=== PATIENT | male | born 2000 | race Caucasian/White ===

== ENCOUNTER 2020-03-15 17:24 | Inpatient (IN) ==
[2020-03-15 18:07] LABS: Hematocrit 48 % (42-52); Hemoglobin 16.4 g/dL (14.0-18.0); Mean Corpuscular HGB Conc 35 g/dL (31-36); Mean Corpuscular Hemoglobin 28 pg (27-31); Mean Corpuscular Volume 82 fL (80-94); Red Blood Count 5.81 10^6 /uL (4.18-5.48); Red Cell Distribution Width 13 % (10-15); White Blood Count 10.7 10^3/uL (3.5-10.8)
[2020-03-15 18:16] LABS: ALT 28 U/L (7-52); AST 29 U/L (13-39); Albumin 5.2 g/dL (3.2-5.2); Albumin/Globulin Ratio 2.4 (1-3); Alkaline Phosphatase 65 U/L (34-104); Anion Gap 11 mmol/L (2-11); BUN/Creatinine Ratio 11.5 (8-20); Blood Urea Nitrogen 14 mg/dL (6-24); CO2 Carbon Dioxide 28 mmol/L (22-32); Calcium 10.1 mg/dL (8.6-10.3); Chloride 100 mmol/L (101-111); EGFR African American 91.6 (>60); EGFR Non-African American 75.7 (>60); Globulin 2.2 g/dL (2-4); Glucose 92 mg/dL (70-100); Potassium 3.3 mmol/L (3.5-5.0); Sodium 139 mmol/L (135-145); Total Protein 7.4 g/dL (6.4-8.9)
[2020-03-15 18:17] LABS: Urine Appearance Clear; Urine Bilirubin Negative (Negative); Urine Blood Negative (Negative); Urine Color Yellow; Urine Glucose Negative (Negative); Urine Ketones Trace (Negative); Urine Nitrite Negative (Negative); Urine Protein Negative (Negative); Urine Specific Gravity 1.012 (1.010-1.030); Urine Urobilinogen Negative (Negative)
[2020-03-15 18:32] LABS: Acetaminophen < 15 mcg/mL; Alcohol, S < 10 mg/dL (<10); Salicylate < 2.50 mg/dL (<30)
[2020-03-15 18:33] LABS: Urine Benzodiazepine Screen None Detected (None Detect); Urine Cannabinoids Screen Presumptive Positive (None Detect); Urine Opiates Screen None Detected (None Detect)
[2020-03-15 18:59] LABS: ABS Basophils 0.1 10^3/ul (0-0.2); ABS Eosinophils 0.2 10^3/ul (0-0.6); ABS Lymphocytes 2.8 10^3/ul (1.0-4.8); ABS Monocytes 0.9 10^3/ul (0-0.8); ABS Neutrophils 6.7 10^3/ul (1.5-7.7); Eosinophil % 1.7 %; Lymphocyte % 26.5 %; Nucleated Red Blood Cells % 0.1; Platelet Count Platelets clumped. 10^3/uL (150-450)
[2020-03-15] MEDS ORDERED: diPHENhydraMINE IV 50 MG/ML 1 ml VIAL (BENADRYL) IM ONE (20:22)
[2020-03-15] MEDS ORDERED: LORazepam 2 mg VIAL 1 ml IM ONE ×2 (20:22→20:25)
[2020-03-15] MEDS ORDERED: Haloperidol 5 mg/ml SDV IV/IM 5 MG/ML AMP IM ONE (20:22)
[2020-03-15] MEDS ORDERED: Lorazepam PYXIS KEY ONE (20:24)
[2020-03-15] MEDS ORDERED: Lorazepam PYXIS KEY PRN (20:25)
[2020-03-16] MEDS ORDERED: Al Hydrox/Mg Hydrox/Simet LIQ 30 ML UDC PO PRN (01:38)
[2020-03-16] MEDS: Vitamin THERAPEUTIC TAB PO SCH (15:01)
[2020-03-16] MEDS ORDERED: Albuterol HFA INHALER 8 gm MDI INH PRN (17:35)
[2020-03-16] MEDS ORDERED: Nicotine GUM 2MG FRUIT FLAVOR PO PRN (17:39)
[2020-03-17] MEDS: Vitamin THERAPEUTIC TAB PO SCH (08:53)
[2020-03-17 08:56] LABS: BUN/Creatinine Ratio 16.3 (8-20); Calcium 9.5 mg/dL (8.6-10.3); EGFR African American 110.2 (>60); HDL Cholesterol 26.2 mg/dL
[2020-03-17] MEDS: Nicotine GUM 4MG FRUIT FLAVOR PO PRN (21:03)
[2020-03-18] MEDS: Nicotine GUM 4MG FRUIT FLAVOR PO PRN ×2 (07:52→11:13)
[2020-03-18] MEDS: Vitamin THERAPEUTIC TAB PO SCH (11:14)
[2020-03-18] MEDS ORDERED: Benztropine 2 mg AMP 1 MG/ML 2 ml AMP ONE (11:47)
[2020-03-18] MEDS ORDERED: Benztropine 2 mg AMP 1 MG/ML 2 ml AMP IM ONE (11:48)
[2020-03-18] MEDS ORDERED: Benztropine 2 mg AMP 1 MG/ML 2 ml AMP IM PRN (11:50)
[2020-03-18] MEDS: Nicotine Lozenge mini 2 MG LOZNG.MINI MT PRN ×4 (14:59→22:26)
[2020-03-18] MEDS: Nicotine PATCH 21 MG/24 HR PATCH TRANSDERM SCH (19:02)
[2020-03-19] MEDS: Nicotine PATCH 21 MG/24 HR PATCH TRANSDERM SCH (08:30)
[2020-03-19] MEDS: Vitamin THERAPEUTIC TAB PO SCH (08:31)
[2020-03-19] MEDS: Nicotine Lozenge mini 2 MG LOZNG.MINI MT PRN (12:34)
[2020-03-19] MEDS: Nicotine GUM 4MG FRUIT FLAVOR PO PRN ×3 (14:14→20:35)
[2020-03-20] MEDS: Nicotine GUM 4MG FRUIT FLAVOR PO PRN ×6 (05:15→20:32)
[2020-03-20] MEDS: Nicotine PATCH 21 MG/24 HR PATCH TRANSDERM SCH (07:15)
[2020-03-20] MEDS: Vitamin THERAPEUTIC TAB PO SCH (09:24)
[2020-03-21] MEDS: Nicotine GUM 4MG FRUIT FLAVOR PO PRN ×2 (04:52→07:02)
[2020-03-21] MEDS: Nicotine PATCH 21 MG/24 HR PATCH TRANSDERM SCH (08:26)
[2020-03-21] MEDS: Vitamin THERAPEUTIC TAB PO SCH (08:26)
[2020-03-22] MEDS: Nicotine PATCH 21 MG/24 HR PATCH TRANSDERM SCH (08:27)
[2020-03-22] MEDS: Nicotine GUM 4MG FRUIT FLAVOR PO PRN ×2 (08:35→19:31)
[2020-03-23] MEDS: Nicotine PATCH 21 MG/24 HR PATCH TRANSDERM SCH (08:22)
[2020-03-23] MEDS: Nicotine GUM 4MG FRUIT FLAVOR PO PRN ×2 (10:23→12:48)
[2020-03-24] MEDS: Nicotine PATCH 21 MG/24 HR PATCH TRANSDERM SCH (09:18)
[2020-03-24] MEDS: Nicotine GUM 4MG FRUIT FLAVOR PO PRN ×3 (09:22→14:58)
[2020-03-25] MEDS: Nicotine PATCH 21 MG/24 HR PATCH TRANSDERM SCH (08:14)
[2020-03-25] MEDS: Nicotine GUM 4MG FRUIT FLAVOR PO PRN ×4 (10:56→19:36)
[2020-03-25] MEDS ORDERED: Lithium Carbonate ER 450mg TAB PO SCH (21:00)
[2020-03-26] MEDS: Nicotine PATCH 21 MG/24 HR PATCH TRANSDERM SCH (08:13)
[2020-03-26] MEDS: Nicotine GUM 4MG FRUIT FLAVOR PO PRN (08:16)
[2020-03-26 09:18] VITALS: BP 150/85
== END 2020-03-26 09:23 | disposition home or self-care (01) | DRG 753 ==
LOC: ED 17:24 → BSU 23:58
PROVIDERS: ADMIT Psychiatry & Neurology Addiction Psychiatry; ATTEND Psychiatry & Neurology Psychiatry

== ENCOUNTER 2021-01-14 09:48 | Inpatient (IN) ==
[2021-01-14] MEDS ORDERED: Albuterol HFA INHALER 8 gm MDI INH ONE (11:05)
[2021-01-14 12:16] LABS: ABS Eosinophils 0.1 10^3/ul (0-0.6); ABS Monocytes 0.7 10^3/ul (0-0.8); ABS Neutrophils 4.5 10^3/ul (1.5-7.7); Hematocrit 44 % (42-52); Hemoglobin 14.9 g/dL (14.0-18.0); Lymphocyte % 26.3 %; Mean Corpuscular HGB Conc 34 g/dL (31-36); Mean Corpuscular Hemoglobin 28 pg (27-31); Mean Corpuscular Volume 83 fL (80-94); Mean Platelet Volume 10.6 fL (7.4-10.4); Nucleated Red Blood Cells % 0.1; Platelet Count 145 10^3/uL (150-450); Red Blood Count 5.29 10^6 /uL (4.18-5.48); Red Cell Distribution Width 13 % (10-15); White Blood Count 7.4 10^3/uL (3.5-10.8)
[2021-01-14 12:31] LABS: ALT 17 U/L (7-52); AST 30 U/L (13-39); Albumin 4.2 g/dL (3.2-5.2); Albumin/Globulin Ratio 1.6 (1-3); Alkaline Phosphatase 75 U/L (35-149); Anion Gap 6 mmol/L (2-11); Blood Urea Nitrogen 10 mg/dL (6-24); CO2 Carbon Dioxide 26 mmol/L (22-32); Chloride 106 mmol/L (101-111); EGFR African American 143.5 (>60); EGFR Non-African American 118.6 (>60); Globulin 2.6 g/dL (2-4); Glucose 94 mg/dL (70-100); Potassium 3.8 mmol/L (3.5-5.0); Sodium 138 mmol/L (135-145); Total Protein 6.8 g/dL (6.4-8.9)
[2021-01-14 12:34] LABS: Lithium < 0.10 mmol/L (0.6-1.2)
[2021-01-14] MEDS ORDERED: Al Hydrox/Mg Hydrox/Simet LIQ 30 ML UDC PO PRN (13:00)
[2021-01-14] MEDS ORDERED: Nicotine PATCH 21 MG/24 HR PATCH TRANSDERM ONE (13:06)
[2021-01-14] MEDS ORDERED: Nicotine GUM 4MG FRUIT FLAVOR PO ONE (13:10)
[2021-01-14] MEDS ORDERED: LORazepam 2 mg VIAL 1 ml ONE (13:27)
[2021-01-14] MEDS ORDERED: Haloperidol 5 mg/ml SDV IV/IM 5 MG/ML AMP ONE (13:45)
[2021-01-14] MEDS ORDERED: diPHENhydraMINE IV 50 MG/ML 1 ml VIAL (BENADRYL) ONE (13:45)
[2021-01-14 13:57] LABS: HIV 4th Generation Nonreactive (Nonreactive)
[2021-01-14 13:58] LABS: Urine Benzodiazepine Screen None Detected (None Detect); Urine Cannabinoids Screen Presumptive Positive (None Detect); Urine Opiates Screen None Detected (None Detect)
[2021-01-14] MEDS: Nicotine GUM 2MG FRUIT FLAVOR PO PRN ×2 (20:36→22:45)
[2021-01-15] MEDS: Albuterol HFA INHALER 8 gm MDI INH PRN ×2 (08:43→22:50)
[2021-01-15] MEDS: Lithium Carbonate ER 450mg TAB PO SCH (08:46)
[2021-01-15] MEDS: Nicotine GUM 2MG FRUIT FLAVOR PO PRN ×2 (08:48→10:52)
[2021-01-15] MEDS: Nicotine PATCH 21 MG/24 HR PATCH TRANSDERM SCH (11:19)
[2021-01-15] MEDS: Lidocaine PATCH 5% PATCH TRANSDERM SCH (11:20)
[2021-01-15] MEDS: Nicotine GUM 4MG FRUIT FLAVOR PO PRN ×4 (11:23→22:52)
[2021-01-15] MEDS ORDERED: risperiDONE-M 1 mg Oradis TAB PO ONE (13:29)
[2021-01-15] MEDS: Lidocaine Patch REMOVE PATCH PATCH OFF SCH (20:24)
[2021-01-16] MEDS: Albuterol HFA INHALER 8 gm MDI INH PRN ×2 (07:40→20:36)
[2021-01-16] MEDS: Nicotine PATCH 21 MG/24 HR PATCH TRANSDERM SCH (07:42)
[2021-01-16] MEDS: Nicotine GUM 4MG FRUIT FLAVOR PO PRN ×5 (07:44→20:40)
[2021-01-16] MEDS: Lithium Carbonate ER 450mg TAB PO SCH (07:44)
[2021-01-16] MEDS: Lidocaine PATCH 5% PATCH TRANSDERM SCH (07:45)
[2021-01-16] MEDS ORDERED: Albuterol HFA INHALER 8 gm MDI INH ONE (08:59)
[2021-01-16] MEDS ORDERED: Ondansetron ODT 4 mg TAB 4 MG TAB PO PRN (11:43)
[2021-01-16] MEDS ORDERED: Albuterol 2.5mg/3 ml (0.083%) NEB.SOLN INH PRN (11:51)
[2021-01-16] MEDS: OLANzapine 5 mg TAB*ODT PO PRN (15:11)
[2021-01-16] MEDS: Lidocaine Patch REMOVE PATCH PATCH OFF SCH (20:39)
[2021-01-17] MEDS: Albuterol HFA INHALER 8 gm MDI INH PRN ×2 (07:41→16:54)
[2021-01-17] MEDS: Lidocaine PATCH 5% PATCH TRANSDERM SCH (08:25)
[2021-01-17] MEDS: Nicotine PATCH 21 MG/24 HR PATCH TRANSDERM SCH (08:25)
[2021-01-17] MEDS: Nicotine GUM 4MG FRUIT FLAVOR PO PRN ×6 (08:30→21:10)
[2021-01-17] MEDS: Lidocaine Patch REMOVE PATCH PATCH OFF SCH (22:41)
[2021-01-18] MEDS: Lidocaine PATCH 5% PATCH TRANSDERM SCH (08:39)
[2021-01-18] MEDS: Albuterol HFA INHALER 8 gm MDI INH PRN (08:39)
[2021-01-18] MEDS: Nicotine GUM 4MG FRUIT FLAVOR PO PRN ×5 (08:42→19:51)
[2021-01-18] MEDS: Nicotine PATCH 21 MG/24 HR PATCH TRANSDERM SCH (08:42)
[2021-01-18] MEDS: Lidocaine Patch REMOVE PATCH PATCH OFF SCH (19:53)
[2021-01-19] MEDS: Albuterol HFA INHALER 8 gm MDI INH PRN ×3 (00:07→21:34)
[2021-01-19] MEDS: Nicotine GUM 4MG FRUIT FLAVOR PO PRN ×6 (00:11→21:38)
[2021-01-19] MEDS: OLANzapine 5 mg TAB*ODT PO PRN (00:51)
[2021-01-19] MEDS: Lidocaine PATCH 5% PATCH TRANSDERM SCH ×2 (08:07→13:36)
[2021-01-19] MEDS: Nicotine PATCH 21 MG/24 HR PATCH TRANSDERM SCH (08:31)
[2021-01-19] MEDS: Nicotine Lozenge mini 4 MG LOZNG.MINI MT PRN ×4 (14:41→23:01)
[2021-01-19] MEDS: Lidocaine Patch REMOVE PATCH PATCH OFF SCH (20:09)
[2021-01-20] MEDS: Nicotine PATCH 21 MG/24 HR PATCH TRANSDERM SCH (07:34)
[2021-01-20] MEDS: Lidocaine PATCH 5% PATCH TRANSDERM SCH (08:06)
[2021-01-20] MEDS: Nicotine GUM 4MG FRUIT FLAVOR PO PRN ×2 (08:08→10:18)
[2021-01-20 08:50] VITALS: BP 149/86
[2021-01-20] MEDS: Albuterol HFA INHALER 8 gm MDI INH PRN (09:06)
== END 2021-01-20 12:30 | disposition home or self-care (01) | DRG 753 ==
LOC: ED 09:48 → BSU 16:25
PROVIDERS: ADMIT Psychiatry & Neurology Psychiatry; ATTEND Psychiatry & Neurology Psychiatry

== ENCOUNTER 2021-01-26 13:05 | Inpatient (IN) ==
[2021-01-26] MEDS ORDERED: LORazepam 2 mg VIAL 1 ml ONE (13:23)
[2021-01-26] MEDS ORDERED: Haloperidol 5 mg/ml SDV IV/IM 5 MG/ML AMP ONE (13:25)
[2021-01-26] MEDS ORDERED: diPHENhydraMINE IV 50 MG/ML 1 ml VIAL (BENADRYL) ONE (13:25)
[2021-01-26 15:40] LABS: ABS Basophils 0.1 10^3/ul (0-0.2); ABS Eosinophils 0.1 10^3/ul (0-0.6); ABS Lymphocytes 2.1 10^3/ul (1.0-4.8); ABS Monocytes 0.8 10^3/ul (0-0.8); Eosinophil % 0.8 %; Hematocrit 46 % (42-52); Hemoglobin 15.2 g/dL (14.0-18.0); Lymphocyte % 21.2 %; Mean Corpuscular HGB Conc 33 g/dL (31-36); Mean Corpuscular Hemoglobin 28 pg (27-31); Mean Corpuscular Volume 84 fL (80-94); Mean Platelet Volume 10.1 fL (7.4-10.4); Platelet Count 213 10^3/uL (150-450); Red Cell Distribution Width 13 % (10-15); White Blood Count 10.1 10^3/uL (3.5-10.8)
[2021-01-26 16:06] LABS: ALT 26 U/L (7-52); AST 36 U/L (13-39); Albumin 4.6 g/dL (3.2-5.2); Albumin/Globulin Ratio 1.8 (1-3); Alkaline Phosphatase 79 U/L (35-149); Anion Gap 9 mmol/L (2-11); Blood Urea Nitrogen 15 mg/dL (6-24); CO2 Carbon Dioxide 27 mmol/L (22-32); Calcium 9.4 mg/dL (8.6-10.3); Chloride 104 mmol/L (101-111); EGFR African American 124.1 (>60); EGFR Non-African American 102.6 (>60); Globulin 2.5 g/dL (2-4); Glucose 80 mg/dL (70-100); Potassium 3.2 mmol/L (3.5-5.0); Sodium 140 mmol/L (135-145); Total Protein 7.1 g/dL (6.4-8.9)
[2021-01-26 16:33] LABS: Alcohol, S < 10 mg/dL (<10); Salicylate < 2.50 mg/dL (<30)
[2021-01-26 16:37] LABS: Acetaminophen < 15 mcg/mL
[2021-01-26 16:38] LABS: TSH Ultra Thyroid Stim Horm 1.35 mcIU/mL (0.34-5.60)
[2021-01-26] MEDS ORDERED: Al Hydrox/Mg Hydrox/Simet LIQ 30 ML UDC PO PRN (18:45)
[2021-01-26] MEDS ORDERED: Albuterol 2.5mg/3 ml (0.083%) NEB.SOLN INH PRN (18:50)
[2021-01-26] MEDS ORDERED: Nicotine GUM 2MG FRUIT FLAVOR PO PRN (19:00)
[2021-01-26 21:22] LABS: Lithium < 0.10 mmol/L (0.6-1.2)
[2021-01-27] MEDS: Lithium Carbonate ER 450mg TAB PO SCH (08:29)
[2021-01-27] MEDS: Vitamin THERAPEUTIC TAB PO SCH (08:29)
[2021-01-27] MEDS ORDERED: Nicotine GUM 4MG FRUIT FLAVOR PO ONE (10:40)
[2021-01-27] MEDS: Nicotine GUM 4MG FRUIT FLAVOR PO PRN ×4 (10:45→21:47)
[2021-01-27] MEDS: Nicotine PATCH 21 MG/24 HR PATCH TRANSDERM SCH ×2 (10:59→12:35)
[2021-01-27 11:03] LABS: Urine Appearance Cloudy; Urine Bilirubin Negative (Negative); Urine Blood Negative (Negative); Urine Color Yellow; Urine Glucose Negative (Negative); Urine Ketones 1+ (Negative); Urine Nitrite Negative (Negative); Urine Protein Negative (Negative); Urine Specific Gravity 1.027 (1.002-1.030); Urine Urobilinogen Negative (Negative)
[2021-01-27 11:21] LABS: Urine Bacteria Absent (Absent); Urine Red Blood Cell Trace(0-2/hpf) (Absent); Urine White Blood Cell 1+(6-10/hpf) (Absent)
[2021-01-27 12:06] LABS: Urine Benzodiazepine Screen None Detected (None Detect); Urine Cannabinoids Screen Presumptive Positive (None Detect); Urine Opiates Screen None Detected (None Detect)
[2021-01-27] MEDS: Nicotine Lozenge mini 4 MG LOZNG.MINI MT PRN ×3 (12:29→23:33)
[2021-01-27] MEDS ORDERED: Potassium Chlor 10 meq TAB PO ONE (13:18)
[2021-01-27] MEDS: Albuterol HFA INHALER 8 gm MDI INH PRN ×2 (13:53→21:11)
[2021-01-28] MEDS: Nicotine GUM 4MG FRUIT FLAVOR PO PRN ×6 (06:06→22:04)
[2021-01-28] MEDS: Albuterol HFA INHALER 8 gm MDI INH PRN ×5 (07:45→22:02)
[2021-01-28] MEDS: Lithium Carbonate ER 450mg TAB PO SCH (07:50)
[2021-01-28] MEDS: Nicotine PATCH 21 MG/24 HR PATCH TRANSDERM SCH (07:50)
[2021-01-28] MEDS: Vitamin THERAPEUTIC TAB PO SCH (07:50)
[2021-01-28] MEDS: Nicotine Lozenge mini 4 MG LOZNG.MINI MT PRN ×4 (07:53→21:32)
[2021-01-28 08:11] LABS: HDL Cholesterol 35.9 mg/dL
[2021-01-28 12:42] LABS: Calcium 9.2 mg/dL (8.6-10.3); Direct Bilirubin 0.1 mg/dL (0.03-0.18); EGFR African American 143.5 (>60); EGFR Non-African American 118.6 (>60); Indirect Bilirubin 0.4 mg/dL (0.3-1.0); Potassium 3.8 mmol/L (3.5-5.0); Total Bilirubin 0.5 mg/dL (0.2-1.0)
[2021-01-29] MEDS: Albuterol HFA INHALER 8 gm MDI INH PRN ×4 (03:19→17:33)
[2021-01-29] MEDS: Nicotine GUM 4MG FRUIT FLAVOR PO PRN ×7 (03:21→23:10)
[2021-01-29] MEDS: Nicotine Lozenge mini 4 MG LOZNG.MINI MT PRN ×4 (04:06→22:18)
[2021-01-29] MEDS: Lithium Carbonate ER 450mg TAB PO SCH (08:12)
[2021-01-29] MEDS: Vitamin THERAPEUTIC TAB PO SCH (08:12)
[2021-01-29] MEDS: Nicotine PATCH 21 MG/24 HR PATCH TRANSDERM SCH (08:13)
[2021-01-29] MEDS: OLANzapine 5 mg TAB*ODT PO SCH (11:04)
[2021-01-30] MEDS: Albuterol HFA INHALER 8 gm MDI INH PRN (01:52)
[2021-01-30] MEDS: Nicotine GUM 4MG FRUIT FLAVOR PO PRN ×4 (06:36→21:37)
[2021-01-30] MEDS: OLANzapine 5 mg TAB*ODT PO SCH (08:27)
[2021-01-30] MEDS: Lithium Carbonate ER 450mg TAB PO SCH ×2 (08:27→21:27)
[2021-01-30] MEDS: Vitamin THERAPEUTIC TAB PO SCH (08:28)
[2021-01-30] MEDS: Nicotine PATCH 21 MG/24 HR PATCH TRANSDERM SCH (08:28)
[2021-01-30] MEDS: Nicotine Lozenge mini 4 MG LOZNG.MINI MT PRN (21:37)
[2021-01-31] MEDS: Nicotine GUM 4MG FRUIT FLAVOR PO PRN ×9 (00:30→22:20)
[2021-01-31] MEDS: Nicotine Lozenge mini 4 MG LOZNG.MINI MT PRN ×3 (05:14→09:50)
[2021-01-31] MEDS: Albuterol HFA INHALER 8 gm MDI INH PRN ×2 (05:49→22:20)
[2021-01-31] MEDS: Vitamin THERAPEUTIC TAB PO SCH (08:24)
[2021-01-31] MEDS: Nicotine PATCH 21 MG/24 HR PATCH TRANSDERM SCH (08:25)
[2021-01-31] MEDS: Lithium Carbonate ER 450mg TAB PO SCH ×2 (08:25→20:39)
[2021-01-31] MEDS: OLANzapine 5 mg TAB*ODT PO SCH (08:26)
[2021-02-01] MEDS: Nicotine GUM 4MG FRUIT FLAVOR PO PRN ×7 (00:50→22:51)
[2021-02-01] MEDS: Nicotine Lozenge mini 4 MG LOZNG.MINI MT PRN ×3 (03:29→19:07)
[2021-02-01] MEDS: Vitamin THERAPEUTIC TAB PO SCH (08:20)
[2021-02-01] MEDS: OLANzapine 5 mg TAB*ODT PO SCH (08:20)
[2021-02-01] MEDS: Nicotine PATCH 21 MG/24 HR PATCH TRANSDERM SCH ×2 (09:44→12:37)
[2021-02-01] MEDS: Lithium Carbonate ER 450mg TAB PO SCH ×2 (09:45→20:46)
[2021-02-01] MEDS: Albuterol HFA INHALER 8 gm MDI INH PRN ×2 (09:46→15:01)
[2021-02-02] MEDS: OLANzapine 5 mg TAB*ODT PO SCH (07:34)
[2021-02-02] MEDS: Lithium Carbonate ER 450mg TAB PO SCH ×2 (07:34→20:48)
[2021-02-02] MEDS: Vitamin THERAPEUTIC TAB PO SCH (07:35)
[2021-02-02] MEDS: Nicotine GUM 4MG FRUIT FLAVOR PO PRN ×5 (07:35→22:09)
[2021-02-02] MEDS: Nicotine Lozenge mini 4 MG LOZNG.MINI MT PRN ×3 (08:51→22:09)
[2021-02-02] MEDS: Albuterol HFA INHALER 8 gm MDI INH PRN ×3 (10:28→19:51)
[2021-02-02] MEDS: Nicotine PATCH 21 MG/24 HR PATCH TRANSDERM SCH (13:53)
[2021-02-03] MEDS: Nicotine GUM 4MG FRUIT FLAVOR PO PRN ×5 (05:47→20:43)
[2021-02-03] MEDS: Lithium Carbonate ER 450mg TAB PO SCH ×2 (08:10→20:39)
[2021-02-03] MEDS: OLANzapine 5 mg TAB*ODT PO SCH (08:10)
[2021-02-03] MEDS: Vitamin THERAPEUTIC TAB PO SCH (08:10)
[2021-02-03] MEDS: Nicotine PATCH 21 MG/24 HR PATCH TRANSDERM SCH (08:42)
[2021-02-03] MEDS: Nicotine Lozenge mini 4 MG LOZNG.MINI MT PRN ×3 (08:42→22:21)
[2021-02-03] MEDS: Albuterol HFA INHALER 8 gm MDI INH PRN ×2 (10:27→15:40)
[2021-02-04] MEDS: Nicotine GUM 4MG FRUIT FLAVOR PO PRN ×6 (06:11→22:53)
[2021-02-04] MEDS: Albuterol HFA INHALER 8 gm MDI INH PRN (06:11)
[2021-02-04] MEDS: Nicotine Lozenge mini 4 MG LOZNG.MINI MT PRN ×4 (07:35→17:54)
[2021-02-04] MEDS: Nicotine PATCH 21 MG/24 HR PATCH TRANSDERM SCH ×2 (09:45→10:28)
[2021-02-04] MEDS: Vitamin THERAPEUTIC TAB PO SCH (09:45)
[2021-02-04] MEDS: OLANzapine 5 mg TAB*ODT PO SCH (09:45)
[2021-02-04] MEDS: Lithium Carbonate ER 450mg TAB PO SCH ×3 (09:45→19:08)
[2021-02-05] MEDS: OLANzapine 5 mg TAB*ODT PO SCH (08:01)
[2021-02-05] MEDS: Nicotine PATCH 21 MG/24 HR PATCH TRANSDERM SCH (08:01)
[2021-02-05] MEDS: Nicotine GUM 4MG FRUIT FLAVOR PO PRN ×5 (08:01→21:51)
[2021-02-05 08:45] LABS: Lithium 0.67 mmol/L (0.6-1.2)
[2021-02-05] MEDS: Vitamin THERAPEUTIC TAB PO SCH (08:51)
[2021-02-05] MEDS: Lithium Carbonate ER 450mg TAB PO SCH ×2 (09:00→19:47)
[2021-02-05] MEDS: Nicotine Lozenge mini 4 MG LOZNG.MINI MT PRN ×2 (11:10→19:48)
[2021-02-05 12:37] LABS: Calcium 9.8 mg/dL (8.6-10.3); Magnesium 1.9 mg/dL (1.9-2.7)
[2021-02-06] MEDS: Lithium Carbonate ER 450mg TAB PO SCH ×2 (08:25→20:17)
[2021-02-06] MEDS: Vitamin THERAPEUTIC TAB PO SCH (08:26)
[2021-02-06] MEDS: OLANzapine 5 mg TAB*ODT PO SCH (08:27)
[2021-02-06] MEDS: Nicotine PATCH 21 MG/24 HR PATCH TRANSDERM SCH (08:31)
[2021-02-06] MEDS: Nicotine Lozenge mini 4 MG LOZNG.MINI MT PRN ×2 (08:32→21:46)
[2021-02-06] MEDS: Nicotine GUM 4MG FRUIT FLAVOR PO PRN ×3 (11:24→20:17)
[2021-02-07] MEDS: Lithium Carbonate ER 450mg TAB PO SCH ×2 (08:36→20:27)
[2021-02-07] MEDS: OLANzapine 5 mg TAB*ODT PO SCH (08:36)
[2021-02-07] MEDS: Nicotine PATCH 21 MG/24 HR PATCH TRANSDERM SCH (08:37)
[2021-02-07] MEDS: Vitamin THERAPEUTIC TAB PO SCH (08:37)
[2021-02-07] MEDS: Nicotine GUM 4MG FRUIT FLAVOR PO PRN ×4 (13:02→20:29)
[2021-02-07] MEDS: Nicotine Lozenge mini 4 MG LOZNG.MINI MT PRN ×2 (18:43→22:07)
[2021-02-08] MEDS: OLANzapine 5 mg TAB*ODT PO SCH (08:01)
[2021-02-08] MEDS: Vitamin THERAPEUTIC TAB PO SCH (08:01)
[2021-02-08] MEDS: Lithium Carbonate ER 450mg TAB PO SCH ×2 (08:02→20:24)
[2021-02-08] MEDS: Nicotine PATCH 21 MG/24 HR PATCH TRANSDERM SCH (08:05)
[2021-02-08] MEDS: Nicotine GUM 4MG FRUIT FLAVOR PO PRN ×3 (10:52→22:12)
[2021-02-08] MEDS: Nicotine Lozenge mini 4 MG LOZNG.MINI MT PRN (15:31)
[2021-02-09] MEDS: Vitamin THERAPEUTIC TAB PO SCH (08:56)
[2021-02-09] MEDS: OLANzapine 5 mg TAB*ODT PO SCH (08:57)
[2021-02-09] MEDS: Lithium Carbonate ER 450mg TAB PO SCH ×2 (08:57→20:20)
[2021-02-09] MEDS: Nicotine GUM 4MG FRUIT FLAVOR PO PRN ×4 (08:58→20:22)
[2021-02-09] MEDS: Nicotine PATCH 21 MG/24 HR PATCH TRANSDERM SCH (08:58)
[2021-02-09] MEDS: Nicotine Lozenge mini 4 MG LOZNG.MINI MT PRN (22:03)
[2021-02-10] MEDS: Nicotine Lozenge mini 4 MG LOZNG.MINI MT PRN ×4 (07:01→21:41)
[2021-02-10] MEDS: Nicotine PATCH 21 MG/24 HR PATCH TRANSDERM SCH (07:02)
[2021-02-10 08:45] LABS: Calcium 9.8 mg/dL (8.6-10.3); EGFR African American 130.6 (>60); EGFR Non-African American 107.9 (>60)
[2021-02-10] MEDS: Vitamin THERAPEUTIC TAB PO SCH ×2 (09:02→09:05)
[2021-02-10] MEDS: Lithium Carbonate ER 450mg TAB PO SCH ×2 (09:04→20:25)
[2021-02-10] MEDS: Nicotine GUM 4MG FRUIT FLAVOR PO PRN ×4 (09:05→22:49)
[2021-02-10] MEDS: OLANzapine 5 mg TAB*ODT PO SCH (09:05)
[2021-02-10 09:09] LABS: Lithium 0.96 mmol/L (0.6-1.2)
[2021-02-10 09:24] LABS: TSH Ultra Thyroid Stim Horm 5.5 mcIU/mL (0.34-5.60)
[2021-02-10 10:48] LABS: Free T4 0.9 ng/dL (0.61-1.12)
[2021-02-11] MEDS: Nicotine GUM 4MG FRUIT FLAVOR PO PRN ×3 (07:23→21:10)
[2021-02-11] MEDS: Lithium Carbonate ER 450mg TAB PO SCH ×2 (08:44→21:03)
[2021-02-11] MEDS: Vitamin THERAPEUTIC TAB PO SCH (08:45)
[2021-02-11] MEDS: OLANzapine 5 mg TAB*ODT PO SCH ×2 (08:45→21:05)
[2021-02-11] MEDS: Nicotine PATCH 21 MG/24 HR PATCH TRANSDERM SCH (08:47)
[2021-02-11] MEDS: Nicotine Lozenge mini 4 MG LOZNG.MINI MT PRN ×4 (08:49→22:45)
[2021-02-12] MEDS: Nicotine Lozenge mini 4 MG LOZNG.MINI MT PRN ×5 (03:25→21:42)
[2021-02-12] MEDS: Lithium Carbonate ER 450mg TAB PO SCH ×2 (08:46→20:05)
[2021-02-12] MEDS: OLANzapine 5 mg TAB*ODT PO SCH ×2 (08:46→20:06)
[2021-02-12] MEDS: Vitamin THERAPEUTIC TAB PO SCH (08:47)
[2021-02-12] MEDS: Nicotine PATCH 21 MG/24 HR PATCH TRANSDERM SCH (08:47)
[2021-02-12] MEDS: Nicotine GUM 4MG FRUIT FLAVOR PO PRN ×2 (10:04→22:09)
[2021-02-13] MEDS: Vitamin THERAPEUTIC TAB PO SCH (09:02)
[2021-02-13] MEDS: Lithium Carbonate ER 450mg TAB PO SCH ×2 (09:02→21:27)
[2021-02-13] MEDS: OLANzapine 5 mg TAB*ODT PO SCH ×2 (09:02→21:27)
[2021-02-13] MEDS: Nicotine PATCH 21 MG/24 HR PATCH TRANSDERM SCH (09:03)
[2021-02-13] MEDS: Nicotine Lozenge mini 4 MG LOZNG.MINI MT PRN ×3 (09:08→22:36)
[2021-02-13] MEDS: Nicotine GUM 4MG FRUIT FLAVOR PO PRN ×2 (11:18→16:12)
[2021-02-14] MEDS: Nicotine PATCH 21 MG/24 HR PATCH TRANSDERM SCH (07:44)
[2021-02-14] MEDS: Vitamin THERAPEUTIC TAB PO SCH (07:46)
[2021-02-14] MEDS: OLANzapine 5 mg TAB*ODT PO SCH ×2 (07:46→20:17)
[2021-02-14] MEDS: Lithium Carbonate ER 450mg TAB PO SCH ×2 (07:46→20:16)
[2021-02-14] MEDS: Nicotine GUM 4MG FRUIT FLAVOR PO PRN ×4 (09:12→22:51)
[2021-02-14] MEDS: Nicotine Lozenge mini 4 MG LOZNG.MINI MT PRN ×7 (10:49→21:52)
[2021-02-15] MEDS: Nicotine PATCH 21 MG/24 HR PATCH TRANSDERM SCH (07:44)
[2021-02-15] MEDS: Lithium Carbonate ER 450mg TAB PO SCH ×2 (07:46→20:18)
[2021-02-15] MEDS: Nicotine Lozenge mini 4 MG LOZNG.MINI MT PRN ×6 (07:46→23:06)
[2021-02-15] MEDS: Vitamin THERAPEUTIC TAB PO SCH (07:46)
[2021-02-15] MEDS: OLANzapine 5 mg TAB*ODT PO SCH ×2 (07:47→20:18)
[2021-02-15] MEDS: Nicotine GUM 4MG FRUIT FLAVOR PO PRN ×2 (14:00→21:33)
[2021-02-16 08:29] VITALS: BP 147/88
[2021-02-16] MEDS: Lithium Carbonate ER 450mg TAB PO SCH (08:36)
[2021-02-16] MEDS: Vitamin THERAPEUTIC TAB PO SCH (08:36)
[2021-02-16] MEDS: OLANzapine 5 mg TAB*ODT PO SCH (08:37)
[2021-02-16] MEDS: Nicotine PATCH 21 MG/24 HR PATCH TRANSDERM SCH (08:38)
[2021-02-16] MEDS: Nicotine Lozenge mini 4 MG LOZNG.MINI MT PRN ×2 (08:40→11:01)
== END 2021-02-16 15:50 | disposition home or self-care (01) | DRG 753 ==
LOC: ED 13:05 → BSU 18:21
PROVIDERS: ADMIT Psychiatry & Neurology Psychiatry; ATTEND Psychiatry & Neurology Psychiatry

== ENCOUNTER 2022-12-26 10:41 | Inpatient (IN) ==
[2022-12-26 12:47] LABS: ABS Basophils 0.1 10^3/uL (0.0-0.1); ABS Eosinophils 0.1 10^3/uL (0.0-0.5); ABS Lymphocytes 2.1 10^3/uL (1.0-4.8); ABS Monocytes 0.9 10^3/uL (0.0-1.1); ABS Neutrophils 6.3 10^3/uL (1.5-7.6); Eosinophil % 0.6 %; Hematocrit 43.5 % (38-53); Hemoglobin 14.8 g/dL (13.2-16.3); Lymphocyte % 22.6 %; Mean Corpuscular Hemoglobin 28.2 pg (27-33); Mean Corpuscular Hgb Conc 33.9 g/dL (31-36); Mean Corpuscular Volume 83.3 fL (80-97); Mean Platelet Volume 9.7 fL (7.5-11.2); Nucleated Red Blood Cells % 0.1 /100 WBC (0.0-0.4); Platelet Count 164 10^3/uL (150-450); Red Blood Count 5.23 10^6/uL (4.06-5.63); Red Cell Distribution Width 13.5 % (12-17); White Blood Count 9.4 10^3/uL (3.6-10.2)
[2022-12-26 13:26] LABS: Urine Appearance Clear; Urine Bilirubin Negative (Negative); Urine Blood Negative (Negative); Urine Color Yellow; Urine Glucose Negative (Negative); Urine Ketones 1+ (Negative); Urine Nitrite Negative (Negative); Urine Protein Negative (Negative); Urine Specific Gravity 1.017 (1.002-1.030); Urine Urobilinogen Negative (Negative)
[2022-12-26 13:30] LABS: ALT 15 U/L (7-52); AST 21 U/L (13-39); Albumin 4.9 g/dL (3.2-5.2); Albumin/Globulin Ratio 2.9 (1-3); Alcohol, S < 13 mg/dL (<13); Alkaline Phosphatase 55 U/L (35-149); Anion Gap 10 mmol/L (2-16); Blood Urea Nitrogen 12 mg/dL (6-24); CO2 Carbon Dioxide 24 mmol/L (22-32); Calcium 9.5 mg/dL (8.6-10.3); Chloride 104 mmol/L (101-111); Creatinine, Serum 0.78 mg/dL (0.67-1.17); Globulin 1.7 g/dL (2-4); Glucose 83 mg/dL (70-100); Lithium < 0.10 mmol/L (0.6-1.2); Potassium 3.9 mmol/L (3.5-5.0); Salicylate < 2.50 mg/dL (<30); Sodium 138 mmol/L (135-145); Total Protein 6.6 g/dL (6.4-8.9); eGFR CKD-EPI 128.5 (>60)
[2022-12-26 13:35] LABS: Acetaminophen < 15 mcg/mL
[2022-12-26 13:42] LABS: Urine Benzodiazepine Screen None Detected (None Detect); Urine Cannabinoids Screen Presumptive Positive (None Detect); Urine Opiates Screen None Detected (None Detect)
[2022-12-26 13:43] LABS: TSH Ultra Thyroid Stim Horm 2.36 mcIU/mL (0.34-5.60)
[2022-12-26] MEDS ORDERED: Al Hydrox/Mg Hydrox/Simet LIQ 30 ML UDC PO PRN (16:35)
[2022-12-26] MEDS ORDERED: Nicotine PATCH 21 MG/24 HR PATCH ONE (16:41)
[2022-12-26] MEDS ORDERED: Nicotine GUM 2MG FRUIT FLAVOR PO PRN (17:00)
[2022-12-26] MEDS: Nicotine Lozenge mini 4 MG LOZNG.MINI MT PRN (19:47)
[2022-12-26] MEDS: OLANZapine 10 mg TAB*ODT PO SCH (19:59)
[2022-12-27] MEDS: Nicotine Lozenge mini 4 MG LOZNG.MINI MT PRN ×6 (06:29→23:32)
[2022-12-27] MEDS: Vitamin THERAPEUTIC TAB PO SCH (07:52)
[2022-12-27] MEDS: Nicotine PATCH 21 MG/24 HR PATCH TRANSDERM SCH (07:52)
[2022-12-27] MEDS: OLANZapine 5 mg TAB *ODT PO PRN (07:56)
[2022-12-27] MEDS: OLANZapine 10 mg TAB*ODT PO SCH (20:19)
[2022-12-28] MEDS: Nicotine Lozenge mini 4 MG LOZNG.MINI MT PRN ×7 (02:09→23:56)
[2022-12-28] MEDS: OLANZapine 5 mg TAB *ODT PO PRN ×2 (07:01→13:27)
[2022-12-28] MEDS: Vitamin THERAPEUTIC TAB PO SCH (07:01)
[2022-12-28] MEDS: Nicotine PATCH 21 MG/24 HR PATCH TRANSDERM SCH (09:55)
[2022-12-28] MEDS: Albuterol HFA INHALER 8 gm MDI INH PRN (13:11)
[2022-12-28] MEDS: OLANZapine 10 mg TAB*ODT PO SCH (20:40)
[2022-12-29] MEDS: Nicotine Lozenge mini 4 MG LOZNG.MINI MT PRN ×6 (05:51→19:41)
[2022-12-29] MEDS: Vitamin THERAPEUTIC TAB PO SCH (07:45)
[2022-12-29] MEDS: Nicotine PATCH 21 MG/24 HR PATCH TRANSDERM SCH (07:46)
[2022-12-29] MEDS: OLANZapine 5 mg TAB *ODT PO PRN ×3 (07:48→22:02)
[2022-12-29] MEDS: OLANZapine 5 mg TAB *ODT PO SCH (19:22)
[2022-12-29] MEDS: Albuterol HFA INHALER 8 gm MDI INH PRN (19:44)
[2022-12-30] MEDS: Vitamin THERAPEUTIC TAB PO SCH (07:25)
[2022-12-30] MEDS: Nicotine Lozenge mini 4 MG LOZNG.MINI MT PRN ×6 (07:25→20:55)
[2022-12-30] MEDS: OLANZapine 5 mg TAB *ODT PO PRN (07:25)
[2022-12-30] MEDS: Nicotine PATCH 21 MG/24 HR PATCH TRANSDERM SCH (07:26)
[2022-12-30] MEDS: OLANZapine 5 mg TAB *ODT PO SCH (20:52)
[2022-12-31] MEDS: Nicotine PATCH 21 MG/24 HR PATCH TRANSDERM SCH (07:01)
[2022-12-31] MEDS: Nicotine Lozenge mini 4 MG LOZNG.MINI MT PRN ×5 (07:02→20:19)
[2022-12-31] MEDS: Vitamin THERAPEUTIC TAB PO SCH (07:06)
[2022-12-31] MEDS: OLANZapine 5 mg TAB *ODT PO SCH (20:15)
[2023-01-01] MEDS: Nicotine PATCH 21 MG/24 HR PATCH TRANSDERM SCH (07:59)
[2023-01-01] MEDS: Vitamin THERAPEUTIC TAB PO SCH (08:00)
[2023-01-01] MEDS: Nicotine Lozenge mini 4 MG LOZNG.MINI MT PRN ×5 (08:49→23:32)
[2023-01-01] MEDS: Albuterol HFA INHALER 8 gm MDI INH PRN (14:09)
[2023-01-01] MEDS: OLANZapine 5 mg TAB *ODT PO SCH (23:01)
[2023-01-02] MEDS: Vitamin THERAPEUTIC TAB PO SCH (07:09)
[2023-01-02] MEDS: Nicotine PATCH 21 MG/24 HR PATCH TRANSDERM SCH (07:10)
[2023-01-02] MEDS: OLANZapine 5 mg TAB *ODT PO SCH (20:21)
[2023-01-02] MEDS: Nicotine Lozenge mini 4 MG LOZNG.MINI MT PRN (20:22)
[2023-01-03] MEDS: Vitamin THERAPEUTIC TAB PO SCH ×2 (06:04→17:29)
[2023-01-03] MEDS: Nicotine PATCH 21 MG/24 HR PATCH TRANSDERM SCH ×2 (06:04→07:44)
[2023-01-03] MEDS: Nicotine Lozenge mini 4 MG LOZNG.MINI MT PRN ×5 (06:05→23:35)
[2023-01-03] MEDS: Albuterol HFA INHALER 8 gm MDI INH PRN (18:14)
[2023-01-03] MEDS: OLANZapine 5 mg TAB *ODT PO SCH (20:16)
[2023-01-04] MEDS: Nicotine PATCH 21 MG/24 HR PATCH TRANSDERM SCH (06:59)
[2023-01-04] MEDS: Vitamin THERAPEUTIC TAB PO SCH (06:59)
[2023-01-04] MEDS: Nicotine Lozenge mini 4 MG LOZNG.MINI MT PRN ×3 (14:57→20:01)
[2023-01-04] MEDS: OLANZapine 5 mg TAB *ODT PO SCH (20:41)
[2023-01-05] MEDS: Nicotine PATCH 21 MG/24 HR PATCH TRANSDERM SCH (07:11)
[2023-01-05] MEDS: Vitamin THERAPEUTIC TAB PO SCH (07:13)
[2023-01-05] MEDS: Nicotine Lozenge mini 4 MG LOZNG.MINI MT PRN ×4 (07:18→20:04)
[2023-01-05] MEDS: OLANZapine 10 mg TAB*ODT PO SCH (20:02)
[2023-01-06] MEDS: Vitamin THERAPEUTIC TAB PO SCH (07:24)
[2023-01-06] MEDS: OLANZapine 10 mg TAB*ODT PO SCH ×2 (07:25→20:52)
[2023-01-06] MEDS: Nicotine PATCH 21 MG/24 HR PATCH TRANSDERM SCH (07:27)
[2023-01-06] MEDS: Nicotine Lozenge mini 4 MG LOZNG.MINI MT PRN ×5 (07:28→21:07)
[2023-01-07] MEDS: OLANZapine 10 mg TAB*ODT PO SCH ×2 (07:12→20:24)
[2023-01-07] MEDS: Vitamin THERAPEUTIC TAB PO SCH (07:12)
[2023-01-07] MEDS: Nicotine PATCH 21 MG/24 HR PATCH TRANSDERM SCH (07:13)
[2023-01-07] MEDS: Nicotine Lozenge mini 4 MG LOZNG.MINI MT PRN ×4 (07:16→20:28)
[2023-01-08] MEDS: Nicotine PATCH 21 MG/24 HR PATCH TRANSDERM SCH (07:08)
[2023-01-08] MEDS: Vitamin THERAPEUTIC TAB PO SCH (07:09)
[2023-01-08] MEDS: OLANZapine 10 mg TAB*ODT PO SCH ×2 (07:09→20:05)
[2023-01-08] MEDS: Nicotine Lozenge mini 4 MG LOZNG.MINI MT PRN ×3 (11:08→20:49)
[2023-01-09] MEDS: Nicotine PATCH 21 MG/24 HR PATCH TRANSDERM SCH (07:04)
[2023-01-09] MEDS: OLANZapine 10 mg TAB*ODT PO SCH ×2 (07:07→20:07)
[2023-01-09] MEDS: Vitamin THERAPEUTIC TAB PO SCH (07:07)
[2023-01-09] MEDS: Nicotine Lozenge mini 4 MG LOZNG.MINI MT PRN ×3 (09:09→19:48)
[2023-01-10] MEDS: Nicotine Lozenge mini 4 MG LOZNG.MINI MT PRN ×2 (05:29→20:53)
[2023-01-10] MEDS: Nicotine PATCH 21 MG/24 HR PATCH TRANSDERM SCH (07:24)
[2023-01-10] MEDS: OLANZapine 10 mg TAB*ODT PO SCH ×2 (07:25→20:56)
[2023-01-10] MEDS: Vitamin THERAPEUTIC TAB PO SCH (07:26)
[2023-01-11] MEDS: Vitamin THERAPEUTIC TAB PO SCH (07:21)
[2023-01-11] MEDS: OLANZapine 10 mg TAB*ODT PO SCH ×2 (07:21→20:20)
[2023-01-11] MEDS: Nicotine PATCH 21 MG/24 HR PATCH TRANSDERM SCH (07:22)
[2023-01-11] MEDS: Nicotine Lozenge mini 4 MG LOZNG.MINI MT PRN ×4 (08:45→21:07)
[2023-01-12] MEDS: Nicotine PATCH 21 MG/24 HR PATCH TRANSDERM SCH (07:34)
[2023-01-12] MEDS: OLANZapine 10 mg TAB*ODT PO SCH ×2 (07:35→19:51)
[2023-01-12] MEDS: Vitamin THERAPEUTIC TAB PO SCH (07:35)
[2023-01-12] MEDS: Nicotine Lozenge mini 4 MG LOZNG.MINI MT PRN ×4 (10:41→19:54)
[2023-01-13] MEDS: Nicotine Lozenge mini 4 MG LOZNG.MINI MT PRN ×4 (06:37→20:54)
[2023-01-13] MEDS: Nicotine PATCH 21 MG/24 HR PATCH TRANSDERM SCH (07:37)
[2023-01-13] MEDS: OLANZapine 10 mg TAB*ODT PO SCH ×2 (07:38→20:01)
[2023-01-13] MEDS: Vitamin THERAPEUTIC TAB PO SCH (07:38)
[2023-01-14] MEDS: Nicotine Lozenge mini 4 MG LOZNG.MINI MT PRN ×3 (06:15→14:26)
[2023-01-14] MEDS: Vitamin THERAPEUTIC TAB PO SCH (07:25)
[2023-01-14] MEDS: OLANZapine 10 mg TAB*ODT PO SCH (07:25)
[2023-01-14] MEDS: Nicotine PATCH 21 MG/24 HR PATCH TRANSDERM SCH (07:27)
[2023-01-14 08:27] VITALS: BP 140/78
== END 2023-01-14 17:00 | disposition home or self-care (01) | DRG 753 ==
LOC: ED 10:41 → EDHOLD 16:14 → BSU 16:17
PROVIDERS: ADMIT Psychiatry & Neurology Psychiatry; ATTEND Psychiatry & Neurology Psychiatry